=== PATIENT | female | born 1990 | race Two or more races ===

== ENCOUNTER 2025-04-23 14:29 | Emergency (ER) | payer OTHER ==
[~2025-04-23] VITALS: Ht 152.4 cm; Wt 95.3 kg
[2025-04-23 15:40] LABS: PLATELET COUNT (AUTO) 490 K/uL (150-450); RED BLOOD CELL COUNT(AUTO) 4.43 MIL/uL (4.0-5.2); RED CELL DISTRIBUTION WIDTH 15.8 % (11.5-15.0); WHITE BLOOD COUNT (AUTO) 6.0 K/uL (4.3-11.0)
[2025-04-23 15:46] LABS: CALCIUM, SERUM 9.2 mg/dL (8.5-10.1); CREATININE 0.6 mg/dL (0.6-1.3); SODIUM SERUM 139.0 mmol/L (136-145); UREA NITROGEN, BLOOD 7.0 mg/dL (7-18)
[2025-04-23] MEDS ORDERED: PROCHLORPERAZINE EDISYLATE 10 MG/2 ML VIAL ONE (16:21)
[2025-04-23] MEDS: IV NS 0.9% 1,000 ML BAG IV ONE (16:28)
[2025-04-23] MEDS: PROCHLORPERAZINE EDISYLATE 10 MG/2 ML VIAL IVP ONE (16:28)
[2025-04-23] MEDS ORDERED: MECL-159 PO (18:13)
[2025-04-23 18:24] VITALS: BP 127/78; TEMP 98.5; O2SAT 99
== END 2025-04-23 18:24 | disposition home or self-care (01) ==
LOC: ER 14:53
DX: R42 Dizziness and giddiness (principal); R51.9 Headache, unspecified; R11.10 Vomiting, unspecified; E11.9 Type 2 diabetes mellitus without complications; I10 Essential (primary) hypertension; E78.5 Hyperlipidemia, unspecified; Z88.1 Allergy status to other antibiotic agents
CPT/HCPCS: 99285; 96374; 70450; 96361; 96375; 93005; 85025; 80048; 36415; 82962; 84702; J0780; J1200; J7030